=== PATIENT | male | born 1950 | race Caucasian/White ===

== ENCOUNTER → 2020-01-08 | Outpatient (CLI) | payer MEDICARE ==
[~2020-01-08] MED LIST: ALLO100T PO; ASPI-630 PO; ATOR40TA PO; GLIP10TA13 PO; LISI-338 PO; METF10007 PO; OMEG1CAP6 PO; TAMS0.4C97 PO; VIT1TABL65 PO
== END | disposition home or self-care (01) ==
LOC: LAB 09:43
PROVIDERS: ATTEND Nurse Anesthetist, Certified Registered
DX: Z20.828 Contact with and (suspected) exposure to other viral communicable diseases (principal)
CPT/HCPCS: U0003-CS

== ENCOUNTER → 2020-01-09 | Outpatient (CLI) | payer MEDICARE | END | disposition home or self-care (01) | LOC: LAB 12:04 | PROVIDERS: ATTEND Registered Nurse | DX: Z11.59 Encounter for screening for other viral diseases (principal) | CPT/HCPCS: U0003-CS ==

== ENCOUNTER → 2020-01-13 | Day surgery (SDC) | payer MEDICARE ==
[~2020-01-13] MED LIST changes: +IPRATRPIUM/ALBUTEROL 0.5/2.5MG 3 ML NEBU. NEB PRN; +IV RINGERS SOLUTION,LACTATED 1,000 ML IV SCH; +ONDANSETRON PF 4 MG/2 ML VIAL. IV PRN; +PROPOFOL 10,000 MCG/ML (20ML) VIAL IV ONE
[2020-01-13 10:18] VITALS: BP 141/95
--- NOTE | 2020-01-14 17:06 | PATHOLOGY ---
[facility] Accession Number: [id number] . 01 Material submitted: . PART A: colon - ASCENDING POLYP. Modifiers: ascending PART B: colon - SIGMOID POLYP. Modifiers: sigmoid . 02 Diagnosis: A. Colon biopsies, ascending colon polyp: - Tubular adenoma. . B. Colon biopsy, sigmoid polyp: - Tubular adenoma. . (PUMAM:brandi; 01/14/2020) [facility] 01/14/2020 1345 Local . 02 Comment: There is no high-grade dysplasia or evidence of malignancy. (PUMAM:brandi; 01/14/2020) . 02 Electronically signed: . Yomi Romo MD, Pathologist NPI- [id number] . 01 Gross description: . A. The specimen is received in formalin, labeled "Jo, Fish, ascending polyp" and consists of 2 fragments of pink-mcneil tissue measuring 0.3 x 0.2 cm each which are entirely submitted in A1. . B. The specimen is received in formalin, labeled "[place], Fish, sigmoid polyp" and consists of a fragment of pink-mcneil tissue measuring 0.4 x 0.2 cm which is entirely submitted in B1. (SDY; 01/13/2020) [facility]U 01/13/2020 1707 Local . 02 Pathologist provided ICD-10: D12.2, D12.5 . 02 CPT . 655569, 422133 Specimen Comment: A courtesy copy of this report has been sent to [phone] Specimen Comment: [id number] Specimen Comment: Report sent to / DR DICKEY Performed at: [address], [place], [place] [id number] MD Lester Clemente MD Phone: [phone] Performed at: [address] [id number] MD Yomi Romo MD Phone: [phone]
== END ==
LOC: SURG 08:07
PROVIDERS: ATTEND Internal Medicine Gastroenterology
DX: Z12.11 Encounter for screening for malignant neoplasm of colon (principal); D12.3 Benign neoplasm of transverse colon; D12.4 Benign neoplasm of descending colon; K57.30 Diverticulosis of large intestine without perforation or abscess without bleeding; K64.8 Other hemorrhoids; Z80.0 Family history of malignant neoplasm of digestive organs; E78.00 Pure hypercholesterolemia, unspecified; Z72.89 Other problems related to lifestyle
CPT/HCPCS: 45380; 88305; J2704; J7120